=== PATIENT | female | born 1950 ===

== ENCOUNTER 2022-07-10 05:20 | Day surgery (SDC) | payer OTHER ==
[~2022-07-10] VITALS: Ht 152.4 cm; Wt 63.5 kg
[~2022-07-10 05:20] MED LIST: CRESTOR5 MG PO; GLIMEPIRIDE4 MG; IRBESARTAN150 MG PO; METFORMIN HCL500 M3 PO; OMEGA-31000 MG PO; SYNTHROID50 MCG PO
== END 2022-07-10 20:10 | disposition home or self-care (01) ==
LOC: CIR.AMB 05:20
PROVIDERS: ATTEND Surgery
DX: C50.912 Malignant neoplasm of unspecified site of left female breast (principal); C77.3 Secondary and unspecified malignant neoplasm of axilla and upper limb lymph nodes; Z20.822 Contact with and (suspected) exposure to COVID-19; I10 Essential (primary) hypertension; E11.9 Type 2 diabetes mellitus without complications; Z79.84 Long term (current) use of oral hypoglycemic drugs; E03.9 Hypothyroidism, unspecified
CPT/HCPCS: 19301; 38525; 19281; L8699; A9541